=== PATIENT | female | born 1995 | race Caucasian/White ===

== ENCOUNTER 2016-08-21 13:20 | Observation (INO) | payer MEDICAID, OTHER | END 2016-08-21 14:15 | disposition home or self-care (01) | DRG 566 | LOC: LDRP 13:20 | PROVIDERS: ADMIT Specialist; ATTEND Specialist | DX: O36.8190 Decreased fetal movements, unspecified trimester, not applicable or unspecified (principal); Z3A.00 Weeks of gestation of pregnancy not specified | CPT/HCPCS: 59025; 81002; G0378 ==